=== PATIENT | female | born 1960 | race Two or more races ===

== ENCOUNTER 2018-08-23 09:25 | Outpatient (CLI) | payer OTHER | END 2018-08-23 09:30 | disposition home or self-care (01) | LOC: LAB 09:25 | DX: Z86.2 Personal history of diseases of the blood and blood-forming organs and certain disorders involving the immune mechanism (principal); E78.00 Pure hypercholesterolemia, unspecified; D64.89 Other specified anemias; N92.5 Other specified irregular menstruation ==

== ENCOUNTER 2018-08-28 07:58 | Outpatient (CLI) | payer OTHER | END 2018-08-28 08:21 | disposition home or self-care (01) | LOC: LAB 07:58 | DX: Z86.2 Personal history of diseases of the blood and blood-forming organs and certain disorders involving the immune mechanism (principal) ==